=== PATIENT | male | born 1970 | race Caucasian/White ===

== ENCOUNTER 2017-01-06 00:33 | Emergency (ER) | payer OTHER ==
[~2017-01-06] VITALS: Ht 185.4 cm; Wt 79.5 kg
[~2017-01-06 00:33] MED LIST: ALBU6.7H INH; AMT50T PO; FLUT1DIS5 IH; FLUT9.9S NS; L.AC1CAP6 PO; LIT450 PO; LORA5TAB8 PO; MAGN500T PO; MULT-544 PO; NPR500T PO; SERXR300 PO
[2017-01-06 00:42] VITALS: BP 140/93; PULSE 68; RESP 25; O2SAT 100
--- NOTE | 2017-01-06 01:03 | ED.REPORT ---
HPI-Extremity Problem Upper Date of Service Jan 06, 2017 ED Provider: Dr. Santos Pt is a 46 year old male with a hx of Bipolar presenting to the ED complaining of his cast being too tight on his right hand. Pt reports that he fractured his finger at work and had a cast put on today that is too tight. He reports pain around his wrist and soreness and numbness in his pinky finger. He denies any other symptoms at this time. Nursing Notes Stated Complaint: MENTAL HEALTH Chief Complaint: Psychiatric Complaint Nursing Notes Reviewed: Yes Allergies: Coded Allergies: No Known Allergies (Verified Allergy, Unknown, 01/06/17) Scheduled Albuterol Sulfate (Proventil HFA Inhaler) 6.7 Gm Hfa.aer.ad 1 PUFF INH Q4 Amitriptyline (Amitriptyline) 50 Mg Tab 50 MG PO HS Fluticasone Propionate (Flonase Allergy Relief) 50 Mcg/Actuation Bono.susp 9.9 ML NS BID Fluticasone/Salmeterol (Advair 500-50 Diskus) 1 Each Disk.w.dev 1 PUFF IH BID [place] Carbonate ([place] Carbonate XR) 450 Mg Tablet.er 450 MG PO BID Loratadine ODT (Claritin ODT) 5 Mg Tablet 10 MG PO DAILY Quetiapine Fumarate ER (Seroquel XR) 300 Mg Tablet 300 MG PO DAILY Scheduled PRN Naproxen (Naproxen) 500 Mg Tab 500 MG PO BID PRN PRN For Pain Miscellaneous Medications L.acidoph & Paracasei,B.lactis (Probiotic) 10 Billion Cell Capsule 1 EACH PO Magnesium Oxide (Magnesium Oxide) 500 Mg Tablet 500 MG PO Multivitamin (Men's Multi-Vitamin) 1 Each Tablet 1 EACH PO General Time Seen by MD: 01:02 Chief Complaint Hand injury right Hx Obtained From: Patient Arrived By: Walk-in Onset Occurred: Just prior to arrival Symptom Duration: Since onset Context: Occurred at: Workplace Location: : Hand right Quality: Painful Severity: Current: Mild Severity: Maximum: Moderate Recent Healthcare: No recent hospitalization, Recent doctor visit Similar Sx Previous: No Past Medical History Past Medical History Bipolar Disorder Chronic low back pain Past Surgical History none reported Smoking History Unknown if Ever Smoker Social History Drug Use: THC Other Social History: Local resident Ambulatory Status Independent Review of Systems Constitutional: Denies: Weakness - generalized Musculoskeletal: Reports: Extremity pain Complete sys rev & neg: except as marked. Respiratory: Denies: Shortness of breath Cardiovascular: Denies: Chest pain GI: Denies: Vomiting Physical Exam Initial Vital Signs Vital Signs (First) Date Time Temp Pulse Resp B/P Pulse Ox O2 Delivery O2 Flow Rate FiO2 01/06/17 00:42 36.3 68 25 140/93 100 Room Air Initial VS: Reviewed General/Constitutional: Well-developed, Well-nourished Head / Eyes: Atraumatic, Normocephalic, PERRL ENT: Mucous membranes moist, Conjunctiva normal, No scleral icterus Neck: Supple, Non-tender, Full range of motion Respiratory: Breath sounds normal, Clear to auscultation, No respiratory distress Cardiovascular: Regular rate & rhythm, Heart sounds normal, Intact distal pulses Lower Extremities: Vascular intact, Neuro intact, No swelling, No tenderness Skin: Warm, Dry, No cyanosis Neurologic: Alert, Oriented, Nonfocal Psychiatric: Mood/affect normal, Behavior normal, Normal thought content Wrist / Hand: Full range of motion, No swelling, Neurologic intact, Vascular intact Right hand 4th finger has normal capillary refill Procedures The patient's cast is too tight so a cast saw was used to bivalve the cast. After releasing the pressure the patient felt immediate relief and sensation returned to his small finger. Re-Eval/Medical Decision Med Decision/Clinical Course The patient presents with discomfort to his right hand after having cast applied. He had some tingling to his small finger and pain in his wrist. Once the cast was bivalved the patient's symptoms resolved. Re-Evaluation/Progress : Time of Eval: 01:08 Patient Status: Condition improved Re-Evaluation/Progress Note: Used cast saw to remove the cast that was placed. After the cast was opened, sensation was returned to his little finger and discomfort was resovled. Counseled Regarding: Diagnosis, Lab results, Need for follow-up, When/why to return to ED Discharge & Departure Impression: Primary Impression: Cast discomfort Disposition: Home Discharge Condition All VS Reviewed: Yes Condition: Improved Additional Instructions: Call your orthopedic doctor tomorrow and let them know that your cast was too tight. Return to the ER if you develop any new or worsening symptoms. Referrals: Matthew Khan DO (PCP) Scribe Attestation Portions of this note were transcribed by Amauri Marmolejo. IDr. Santos personally performed the history, physical exam and medical decision-making; I reviewed and confirmed the accuracy of the information in the transcribed note. Signed by : Deb King, 01/05/2017 and 0128. copies to: Matthew Khan Jena M MD Jan 06, 2017 01:03 AMAURI MARMOLEJO Jan 06, 2017 01:07
[2017-01-06 01:30] VITALS: BP 140/93; PULSE 68; RESP 25; O2SAT 100
== END 2017-01-06 01:42 | disposition home or self-care (01) ==
LOC: SED 00:33
DX: Z46.89 Encounter for fitting and adjustment of other specified devices (principal); S62.626D Displaced fracture of middle phalanx of right little finger, subsequent encounter for fracture with routine healing; X58.XXXD Exposure to other specified factors, subsequent encounter; Y92.69 Other specified industrial and construction area as the place of occurrence of the external cause; Y93.89 Activity, other specified; Y99.0 Civilian activity done for income or pay; F31.9 Bipolar disorder, unspecified; R20.0 Anesthesia of skin